=== PATIENT | female | born 1990 | race Caucasian/White ===

== ENCOUNTER → 2019-12-13 14:49 | Outpatient (CLI) | payer OTHER, SELFPAY ==
[2019-12-13 16:10] LABS: Hematocrit 40.1 % (36-46); Hemoglobin 13.6 g/dL (12.0-16.0); Mean Corpuscular HGB Conc 33.8 % (30-36); Mean Corpuscular Hemoglobin 30.6 PG (26-34); Mean Corpuscular Volume 90.4 fL (80-100); Platelet Count 151 X10^3/uL (150-400); Red Blood Cell Count 4.44 X10^6/uL (4.0-5.2); Red Cell Distribution Width 13.1 % (11.6-14.8); White Blood Cell Count 6.1 X10^3/uL (4.5-11.0)
[2019-12-13 16:21] LABS: Alanine Aminotransferase 17 IU/L (<35); Albumin 4.4 g/dL (3.5-5.0); Albumin Globulin Ratio 1.6 (1.0-2.8); Alkaline Phosphatase 55 U/L (38-126); Aspartate Aminotransferase 28 IU/L (14-36); BUN Creatinine Ratio 15.5 (6-22); Bilirubin Total 0.7 mg/dL (0.2-1.3); Blood Urea Nitrogen 13 mg/dL (7-17); Calcium 9.6 mg/dL (8.4-10.2); Carbon Dioxide 28 mmol/L (22-32); Chloride 100 mmol/L (98-107); Estimated Glomerular Filt Rate > 60.0 mL/min (>60); Globulin 2.8 g/dL (1.7-4.1); Glucose 88 mg/dL (70-100); HEMOLYSIS < 15 (0-50); Potassium 4.1 mmol/L (3.4-5.1); Sodium 137 mmol/L (137-145); Total Protein 7.2 g/dL (6.3-8.2)
[2019-12-13 17:39] LABS: Urine N gonorrhoeae NOT DETECTED
[2019-12-13 17:51] LABS: Urine Chlamydia NOT DETECTED
[2019-12-14 04:36] LABS: HSV 2 IGG AB 6.65 index (0.00-0.90); HSV1IGG < 0.91 index (0.00-0.90)
[2019-12-14 05:36] LABS: RPR Screen Non Reactive (Non Reactive)
[2019-12-16 16:33] LABS: Hepatitis B Surface Antigen NEGATIVE s/c (NEGATIVE)
[2019-12-16 16:50] LABS: HIV 1 & 2 Ab/Ag 4th Gen Combo NEGATIVE (NEGATIVE); Hep C Virus Ab w/Reflex Quant NEGATIVE s/c (NEGATIVE)
== END ==
PROVIDERS: Referring Provider Nurse Practitioner Family; Visit Provider Nurse Practitioner Family
DX: Z00.00 Encounter for general adult medical examination without abnormal findings (principal); Z20.2 Contact with and (suspected) exposure to infections with a predominantly sexual mode of transmission; R59.0 Localized enlarged lymph nodes
CPT/HCPCS: 36415; 80053; 85027; 86592; 86695; 86696; 86803; 87340; 87389; 87491; 87591

== ENCOUNTER → 2020-11-05 12:45 | Outpatient (CLI) | payer OTHER, SELFPAY ==
[2020-11-05] MEDS: COVID-19 VACC #1, MRNA(MOD) 100 MCG/0.5 ML VIAL IM (12:55)
== END ==
PROVIDERS: Family Provider Nurse Practitioner Family; PCP Nurse Practitioner Family; Visit Provider Internal Medicine
DX: Z23 Encounter for immunization (principal)
CPT/HCPCS: 0011A; 91301

== ENCOUNTER → 2020-12-03 14:37 | Outpatient (CLI) | payer OTHER, SELFPAY ==
[2020-12-03] MEDS: COVID-19 VACC #2, MRNA(MOD) 100 MCG/0.5 ML VIAL IM (14:43)
== END ==
PROVIDERS: Family Provider Nurse Practitioner Family; PCP Nurse Practitioner Family; Visit Provider Internal Medicine
DX: Z23 Encounter for immunization (principal)
CPT/HCPCS: 0012A; 91301

== ENCOUNTER → 2021-01-01 08:36 | Outpatient (CLI) | payer OTHER, SELFPAY ==
[2021-01-01 09:01] LABS: Hematocrit 42.1 % (36-46); Hemoglobin 13.9 g/dL (12.0-16.0); Mean Corpuscular HGB Conc 32.9 % (30-36); Mean Corpuscular Hemoglobin 29.5 PG (26-34); Mean Corpuscular Volume 89.6 fL (80-100); Platelet Count 144 X10^3/uL (150-400); Red Cell Distribution Width 13.4 % (11.6-14.8); White Blood Cell Count 6.2 X10^3/uL (4.5-11.0)
[2021-01-01 09:22] LABS: Alanine Aminotransferase 16 IU/L (<35); Albumin 4.6 g/dL (3.5-5.0); Albumin Globulin Ratio 1.7 (1.0-2.8); Alkaline Phosphatase 42 U/L (38-126); Aspartate Aminotransferase 28 IU/L (14-36); BUN Creatinine Ratio 20.2 (6-22); Bilirubin Total 0.5 mg/dL (0.2-1.3); Blood Urea Nitrogen 17 mg/dL (7-17); Calcium 9.7 mg/dL (8.4-10.2); Carbon Dioxide 29 mmol/L (22-32); Chloride 103 mmol/L (98-107); Cholesterol 148 mg/dL (140-199); Estimated Glomerular Filt Rate > 60.0 mL/min (>60); Globulin 2.7 g/dL (1.7-4.1); Glucose 84 mg/dL (70-100); HDL Cholesterol 67 mg/dL (40-60); HEMOLYSIS < 15 (0-50); LDL Cholesterol Calculated 73 mg/dL (<100); Potassium 4.7 mmol/L (3.4-5.1); Sodium 137 mmol/L (137-145); Total Protein 7.3 g/dL (6.3-8.2); Triglycerides 39 mg/dL (35-150)
[2021-01-01 09:54] LABS: TSH w/ Reflex to FT4 0.61 uIU/mL (0.47-4.68)
== END ==
PROVIDERS: Family Provider Nurse Practitioner Family; PCP Nurse Practitioner Family; Referring Provider Nurse Practitioner Family; Visit Provider Nurse Practitioner Family
DX: Z00.00 Encounter for general adult medical examination without abnormal findings (principal); I73.00 Raynaud's syndrome without gangrene; Z13.6 Encounter for screening for cardiovascular disorders
CPT/HCPCS: 36415; 80053; 80061; 84443; 85027

== ENCOUNTER 2021-01-14 09:00 | Outpatient (RCR) | payer OTHER, SELFPAY ==
--- NOTE | 2020-09-14 17:13 | PT.OIE ---
Current Diagnoses Other internal derangements of right knee (09/14/20) Past Medical History (Last Updated 12/27/19 @ 14:40 by JESSICA Onofre) Anorexia nervosa (~2005) Chicken pox (~1995) Encounter for routine gynecological examination HSV-2 (herpes simplex virus 2) infection Possible exposure to STD Right knee injury (2005) Past Surgical History (Last Updated 12/26/19 @ 20:04 by Yuko Steven) [place] teeth removed (~2014) Visit Care Team Role Provider Type JESSICA Onofre Attending Provider Advanced Rn Hyperbaric Family Provider Primary Care Provider Referring Provider Specialty: Family Practice Address: [address] [place] [address], [facility] Email: [email or web address] Physical Therapy Initial Evaluation PT-OP-A Visit Information Start: 09/03/20 17:10 Freq: Status: Active Protocol: Document 09/14/20 12:48 LRN (Rec: 09/14/20 14:18 LRN [id number]) Out-Patient Physical Therapy Visit Information Visit Information Visit Type Initial Evaluation Visit Start Time 12:48 Visit Stop Time 13:38 Total Visit Minutes 50 Visit Number 1 Evaluation Information Evaluation Date 09/14/20 Precautions Precautions None. PT-OP-B Current Condition Start: 09/03/20 17:10 Freq: Status: Active Protocol: Document 09/14/20 12:48 LRN (Rec: 09/14/20 14:18 LRN [id number]) Current Condition History of Current Condition Onset Date 2006 History of Current Condition R knee is stiff and tight. Goal is to take preventive measures. Sr in high school slipped off kitchen counter and landed on knee, was swollen and bruised, but MD thought nothing was wrong. Since then had clicked and is noticeably. Clicks 70 % of time going up stairs. Sometimes bending/ straightening the knee is will click. If sitting on heels it becomes very stiff. After stretching and biking has stiffness. Prior Treatments and Tests X-ray in 2018 found more ms development in R knee vs L knee. Future Testing and Treatments Planned Follow up with referring physician ~10/30/20. Treatment Goals Patient/Caregiver Goals Pt goal is to learn preventive measures to keep knee from worsening. Return to normal function. Prior Functional Status Baseline Function- ADL's Independent Baseline Function- Mobility Independent Current Functional Impairments (Reported) Functional Limitations- ADL's R knee Clicks with going up stairs and occasionally descending. R knee clicks coming out of squat and feels stiffness and tightness in majority of medial R knee. Functional Limitations- Mobility/Gait Occasional click in R knee. 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 Personal Factors Other Personal Factors That May Effect Lives in [place] with dog. Therapy/Recovery PT-OP-C Subjective Start: 09/03/20 17:10 Freq: Status: Active Protocol: Document 09/14/20 12:48 LRN (Rec: 09/14/20 14:18 LRN [id number]) Patient Questionnaires Lower Extremity Functional Scale LEFS Score 0 LEFS Impairment 0% Impaired (Score 80) OP-PT Pain Assessment Pain Assessment Grid Paper Pain Assessment Grid Completed Yes Location R knee Pain Location Details R medial knee stiffness Intensity 0 Scale Used Numeric (0 - 10) Description Tightness Frequency Intermittent Pain Aggravating Factors Activity,Exercise Other Pain Alleviating Factors Yoga, stretching. PT-OP-G Mobility & Gait Start: 09/03/20 17:10 Freq: Status: Active Protocol: Document 09/14/20 12:48 LRN (Rec: 09/14/20 14:18 LRN [id number]) OP Gait Assessment Gait Gait Assistance Required: Independent Able to Maintain Weight Bearing Status Yes During Gait Assistive Devices Assistive Device None Gait Deviations General Gait Pattern Within Normal Limits Comments Gait Comments R hip/shoulder low. PT-OP-H Neuro Start: 09/03/20 17:10 Freq: Status: Active Protocol: Document 09/14/20 12:48 LRN (Rec: 09/14/20 14:18 LRN [id number]) Sensation Evaluation Gross Sensation Gross Sensation WNL Deep Tendon Reflex & Clonus Assessment Deep Tendon Reflex Bilateral Achilles Deep Tendon Reflex 3+ Normal But Brisk Bilateral Patellar Deep Tendon Reflex 3+ Normal But Brisk PT-OP-J Posture/Palpation/Skin Start: 09/03/20 17:10 Freq: Status: Active Protocol: Document 09/14/20 12:48 LRN (Rec: 09/14/20 14:18 LRN [id number]) Posture Evaluation Position Standing L-Spine Posture Increased Lordosis Pelvis Posture Anteriorly Tilted Weight Distribution Balanced Knee Posture (L) Genu Valgus,(R) Genu Valgus Ankle/Foot Posture (R) Plantarflexed,(R) Pronated ,(R) Forefoot Abducted Foot Arch (L) Medium Arch,(R) Medium Arch Palpation Assessment Location R knee Palpation Location Infrapatellar Palpation Findings Edema PT-OP-K Range of Motion Start: 09/03/20 17:10 Freq: Status: Active Protocol: Document 09/14/20 12:48 LRN (Rec: 09/14/20 14:18 LRN [id number]) Hip Goniometric Range of Motion Hip Right Passive Testing Position Supine Straight Leg Raise 110 Internal Rotation 30 External Rotation 70 Left Passive Straight Leg Raise 110 Internal Rotation 35 External Rotation 65 Knee Goniometric Range of Motion Knee Right Knee ROM WFL No Patient Position Supine Flexion Active (degrees) 142 Extension Passive (degrees) 3 Left Knee ROM WFL Yes Patient Position Supine Flexion Active (degrees) 145 Extension Passive (degrees) 2 PT-OP-L Special Tests Start: 09/03/20 17:10 Freq: Status: Active Protocol: Document 09/14/20 12:48 LRN (Rec: 09/14/20 14:18 LRN [id number]) Special Tests Knee Special Tests Varus- 25 Degrees Test Results - right Valgus- 25 Degrees Test Results - right Straight Leg Raise Test Results - right Posterior Draw Test Results - right Patellar Grind Test Test Results - right Bounce Home Test Results - right Apley's Compression Test Results - right Anterior Draw Test Results - right Kathe Test Comments 1x Click on initial attempt, but was not able to reproduce with several attempts. Archana's Test Results - right PT-OP-M Strength Start: 09/03/20 17:10 Freq: Status: Active Protocol: Document 09/14/20 12:48 LRN (Rec: 09/14/20 14:18 LRN [id number]) Hip Strength Hip Manual Muscle Testing Right Comments Generally 5/5 Weakness visible (valgus of knee) with squat. Left Comments Generally 5/5 Knee Strength Knee Manual Muscle Testing Right Flexion (S2) 5 Normal Extension (L3) 5 Normal Left Flexion (S2) 5 Normal Extension (L3) 5 Normal Ankle/Foot Strength Ankle and Foot Manual Muscle Testing Right Comments Generally 5/5 Left Comments Generally 5/5 PT-OP-Q Treatments Start: 09/03/20 17:10 Freq: Status: Active Protocol: Document 09/14/20 12:48 LRN (Rec: 09/14/20 14:18 LRN [id number]) Therapeutic Exercises Supine Exercises QS Supine Exercise Name Taught during instructions given Side right Reps/Minutes 1' Self-Care/Home Management Treatment Education Other Education Discussed results of evaluation, goals and plan of care. Discussed & educated pt in use of cryotherapy to reduce swelling in R knee. Activities Self-Care/Home Management Activities Instructed pt in QS for knee ext stretching and for edema management. Instructed pt in R knee flexion stretch in prone. PT-OP-T Assessment and Plan Start: 09/03/20 17:10 Freq: Status: Active Protocol: Document 09/14/20 12:48 LRN (Rec: 09/14/20 14:18 LRN [id number]) Physical Therapy Assessment Rehab Potential Rehabilitation Potential Good Evaluation Complexity Number of Personal Factors/Comorbidities 0 Number of Body Systems Impaired 1-2 Clinical Presentation at Evaluation Stable Impairments Impairments Activity Tolerance,ROM Other Impairments Postural weakness with valgus of knees with squat and gait. Goals Three Impairment R knee instability (clicking ) w/R WBing activities (R up stairs, R squat) Short Term Goal (STG) Pt will be educated in HEP of hip/knee/ankle strengthening to minimize R knee valgus. STG Duration 10/29/20 Mcc Goal (LTG) Decrease symptoms of clicking with stepping up RLE and with RLE squats. LTG Duration 11/13/20 Two Impairment Decreased R knee ROM (3-142 right, 2-135 left) Short Term Goal (STG) Pt educated in use of modailities and K-tape for edema management. STG Duration 10/09/20 Rack Puncher Goal (LTG) Pt will demonstrate normal R knee AROM. LTG Duration 11/13/20 One Impairment Lacks proper knowledge in self care HEP for R knee. Short Term Goal (STG) Pt will be educated in edema management. STG Duration 09/25/20 Mcc Goal (LTG) Pt will be independent in a self care HEP to minimize onset of swelling in the R knee. LTG Duration 11/13/20 Assessment Summary Assessment Pt is a 30 yo female with low level swelling in the R knee. Her click complaints in the R knee was reproduced once with Kathe Test, which might indicate menicus involvement. I was unable to reproduce the click again even after several attempts. She was negative with Apley's Compression Test (test for meniscus dysfunction) and all ligamentous tests. She shows mild decrease in R knee and hip (IR) ROM and functional weakness of the R hip. Her balance is good as tested with SLS in socks. The pt will benefit from skilled physical therapy for education on self care of the R knee and for a self care HEP of ROM and strengthening to improve functional mobility for squats and stair ambulatioin, and to decrease swelling in the R knee. If she starts to experience catching or locking of the knee I would highly recommended that further imaging to rule out meniscus involvement. Physical Therapy Plan Frequency and Duration Frequency of Treatment Occasional/variable Plan of Care Start Date 09/14/20 Plan of Care End Date 11/13/20 Therapeutic Interventions Therapeutic Interventions Home Exercise Program,Manual Therapy,Patient/Caregiver Education,Self-Care/Home Management,Taping,Therapeutic Activities,Therapeutic Exercises Modalities Cold Pack/Ice Massage,Electric Stimulation,Hot Packs, Ultrasound Next Visit Focus/Plan Next Note Type Treatment Note Next Visit Plan Cont 1x or every other week due to financial concerns of the patient. Check patellar tracking. US R medial knee around patella and joint line. Education in self care of ice/heat & home program of medial quad and hip ab strengthening, Stretching to R knee (prone for flex) and QS for extension & hip R IR/L hip ER stretching. Assess for scoliosis. T-Band side walking. OC & CKC. I/S pt in biking at low resistance and high RPMs. T-Band exercises. End ice. Try K-tape with pt learning self taping.
--- NOTE | 2020-09-14 17:14 | PT.OPPOC ---
Physical, Occupational & Speech Therapy At [facility] Current Diagnoses Other internal derangements of right knee (09/14/20) Visit Care Team Role Provider Type JESSICA Onofre Attending Provider Advanced Computer Processing Scheduler Family Provider Primary Care Provider Referring Provider Specialty: Family Practice Address: [address] [place] [address], [id number] Email: [email or web address] Plan Of Care PT-OP-T Assessment and Plan Start: 09/03/20 17:10 Freq: Status: Active Protocol: Document 09/14/20 12:48 LRN (Rec: 09/14/20 14:18 LRN [id number]) Physical Therapy Assessment Rehab Potential Rehabilitation Potential Good Evaluation Complexity Number of Personal Factors/Comorbidities 0 Number of Body Systems Impaired 1-2 Clinical Presentation at Evaluation Stable Impairments Impairments Activity Tolerance,ROM Other Impairments Postural weakness with valgus of knees with squat and gait. Goals Three Impairment R knee instability (clicking ) w/R WBing activities (R up stairs, R squat) Short Term Goal (STG) Pt will be educated in HEP of hip/knee/ankle strengthening to minimize R knee valgus. STG Duration 10/29/20 Pipe Smoking Machine Operator Goal (LTG) Decrease symptoms of clicking with stepping up RLE and with RLE squats. LTG Duration 11/13/20 Two Impairment Decreased R knee ROM (3-142 right, 2-135 left) Short Term Goal (STG) Pt educated in use of modailities and K-tape for edema management. STG Duration 10/09/20 Pipe Smoking Machine Operator Goal (LTG) Pt will demonstrate normal R knee AROM. LTG Duration 11/13/20 One Impairment Lacks proper knowledge in self care HEP for R knee. Short Term Goal (STG) Pt will be educated in edema management. STG Duration 09/25/20 Pipe Smoking Machine Operator Goal (LTG) Pt will be independent in a self care HEP to minimize onset of swelling in the R knee. LTG Duration 11/13/20 Assessment Summary Assessment Pt is a 30 yo female with low level swelling in the R knee. Her click complaints in the R knee was reproduced once with Kathe Test, which might indicate menicus involvement. I was unable to reproduce the click again even after several attempts. She was negative with Apley's Compression Test (test for meniscus dysfunction) and all ligamentous tests. She shows mild decrease in R knee and hip (IR) ROM and functional weakness of the R hip. Her balance is good as tested with SLS in socks. The pt will benefit from skilled physical therapy for education on self care of the R knee and for a self care HEP of ROM and strengthening to improve functional mobility for squats and stair ambulatioin, and to decrease swelling in the R knee. If she starts to experience catching or locking of the knee I would highly recommended that further imaging to rule out meniscus involvement. Physical Therapy Plan Frequency and Duration Frequency of Treatment Occasional/variable Plan of Care Start Date 09/14/20 Plan of Care End Date 11/13/20 Therapeutic Interventions Therapeutic Interventions Home Exercise Program,Manual Therapy,Patient/Caregiver Education,Self-Care/Home Management,Taping,Therapeutic Activities,Therapeutic Exercises Modalities Cold Pack/Ice Massage,Electric Stimulation,Hot Packs, Ultrasound Next Visit Focus/Plan Next Note Type Treatment Note Next Visit Plan Cont 1x or every other week due to financial concerns of the patient. Check patellar tracking. US R medial knee around patella and joint line. Education in self care of ice/heat & home program of medial quad and hip ab strengthening, Stretching to R knee (prone for flex) and QS for extension & hip R IR/L hip ER stretching. Assess for scoliosis. T-Band side walking. OC & CKC. I/S pt in biking at low resistance and high RPMs. T-Band exercises. End ice. Try K-tape with pt learning self taping. Plan of Care Dates Plan of Care Start Date 09/14/20 Plan of Care End Date 11/13/20 Electronically Signed by: Theresa Lazo, PT 09/14/20 0902 Please Sign and Return: I have reviewed this Plan of Care and certify that the skilled therapy services above are required to meet the patient?s needs. Physician Signature Date Printed Name and Credentials Clinical Instructor Signature Printed Name and Credentials
--- NOTE | 2020-09-21 15:57 | PT.OTN ---
Current Diagnoses Other internal derangements of right knee (09/21/20) Physical Therapy Treatment Note PT-OP-A Visit Information Start: 09/03/20 17:10 Freq: Status: Active Protocol: Document 09/21/20 14:26 LRN (Rec: 09/21/20 15:56 LRN [id number]) Out-Patient Physical Therapy Visit Information Visit Information Visit Type Treatment Note Visit Start Time 14:26 Visit Stop Time 15:16 Total Visit Minutes 50 Visit Number 2 Evaluation Information Evaluation Date 09/14/20 Precautions Precautions None. PT-OP-B Current Condition Start: 09/03/20 17:10 Freq: Status: Active Protocol: Document 09/14/20 12:48 LRN (Rec: 09/14/20 14:18 LRN [id number]) Current Condition History of Current Condition Onset Date 2006 History of Current Condition R knee is stiff and tight. Goal is to take preventive measures. Sr in high school slipped off kitchen counter and landed on knee, was swollen and bruised, but MD thought nothing was wrong. Since then had clicked and is noticeably. Clicks 70 % of time going up stairs. Sometimes bending/ straightening the knee is will click. If sitting on heels it becomes very stiff. After stretching and biking has stiffness. Prior Treatments and Tests X-ray in 2018 found more ms development in R knee vs L knee. Future Testing and Treatments Planned Follow up with referring physician ~10/30/20. Treatment Goals Patient/Caregiver Goals Pt goal is to learn preventive measures to keep knee from worsening. Return to normal function. Prior Functional Status Baseline Function- ADL's Independent Baseline Function- Mobility Independent Current Functional Impairments (Reported) Functional Limitations- ADL's R knee Clicks with going up stairs and occasionally descending. R knee clicks coming out of squat and feels stiffness and tightness in majority of medial R knee. Functional Limitations- Mobility/Gait Occasional click in R knee. 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 Personal Factors Other Personal Factors That May Effect Lives in [place] with dog. Therapy/Recovery PT-OP-C Subjective Start: 09/03/20 17:10 Freq: Status: Active Protocol: Document 09/21/20 14:26 LRN (Rec: 09/21/20 15:56 LRN [id number]) OP-PT Subjective Patient Comments Patient Comments From doing ex's felt tension and fatigue behind the R knee. States she ran this morning and her knee felt tight, but after stretching felt fine. PT-OP-G Mobility & Gait Start: 09/03/20 17:10 Freq: Status: Active Protocol: Document 09/14/20 12:48 LRN (Rec: 09/14/20 14:18 LRN [id number]) OP Gait Assessment Gait Gait Assistance Required: Independent Able to Maintain Weight Bearing Status Yes During Gait Assistive Devices Assistive Device None Gait Deviations General Gait Pattern Within Normal Limits Comments Gait Comments R hip/shoulder low. PT-OP-H Neuro Start: 09/03/20 17:10 Freq: Status: Active Protocol: Document 09/14/20 12:48 LRN (Rec: 09/14/20 14:18 LRN [id number]) Sensation Evaluation Gross Sensation Gross Sensation WNL Deep Tendon Reflex & Clonus Assessment Deep Tendon Reflex Bilateral Achilles Deep Tendon Reflex 3+ Normal But Brisk Bilateral Patellar Deep Tendon Reflex 3+ Normal But Brisk PT-OP-J Posture/Palpation/Skin Start: 09/03/20 17:10 Freq: Status: Active Protocol: Document 09/14/20 12:48 LRN (Rec: 09/14/20 14:18 LRN [id number]) Posture Evaluation Position Standing L-Spine Posture Increased Lordosis Pelvis Posture Anteriorly Tilted Weight Distribution Balanced Knee Posture (L) Genu Valgus,(R) Genu Valgus Ankle/Foot Posture (R) Plantarflexed,(R) Pronated ,(R) Forefoot Abducted Foot Arch (L) Medium Arch,(R) Medium Arch Palpation Assessment Location R knee Palpation Location Infrapatellar Palpation Findings Edema PT-OP-K Range of Motion Start: 09/03/20 17:10 Freq: Status: Active Protocol: Document 09/14/20 12:48 LRN (Rec: 09/14/20 14:18 LRN [id number]) Hip Goniometric Range of Motion Hip Right Passive Testing Position Supine Straight Leg Raise 110 Internal Rotation 30 External Rotation 70 Left Passive Straight Leg Raise 110 Internal Rotation 35 External Rotation 65 Knee Goniometric Range of Motion Knee Right Knee ROM WFL No Patient Position Supine Flexion Active (degrees) 142 Extension Passive (degrees) 3 Left Knee ROM WFL Yes Patient Position Supine Flexion Active (degrees) 145 Extension Passive (degrees) 2 PT-OP-L Special Tests Start: 09/03/20 17:10 Freq: Status: Active Protocol: Document 09/14/20 12:48 LRN (Rec: 09/14/20 14:18 LRN [id number]) Special Tests Knee Special Tests Varus- 25 Degrees Test Results - right Valgus- 25 Degrees Test Results - right Straight Leg Raise Test Results - right Posterior Draw Test Results - right Patellar Grind Test Test Results - right Bounce Home Test Results - right Apley's Compression Test Results - right Anterior Draw Test Results - right Kathe Test Comments 1x Click on initial attempt, but was not able to reproduce with several attempts. Archana's Test Results - right PT-OP-M Strength Start: 09/03/20 17:10 Freq: Status: Active Protocol: Document 09/14/20 12:48 LRN (Rec: 09/14/20 14:18 LRN [id number]) Hip Strength Hip Manual Muscle Testing Right Comments Generally 5/5 Weakness visible (valgus of knee) with squat. Left Comments Generally 5/5 Knee Strength Knee Manual Muscle Testing Right Flexion (S2) 5 Normal Extension (L3) 5 Normal Left Flexion (S2) 5 Normal Extension (L3) 5 Normal Ankle/Foot Strength Ankle and Foot Manual Muscle Testing Right Comments Generally 5/5 Left Comments Generally 5/5 PT-OP-Q Treatments Start: 09/03/20 17:10 Freq: Status: Active Protocol: Document 09/21/20 14:26 LRN (Rec: 09/21/20 15:56 LRN [id number]) Cardio Equipment Bicycle (Upright) Duration (Minutes) 10 Resistance 5 Seat Position 9 Other Pt able to maintain rpm>90 (~ 105) Therapeutic Exercises Prone Exercises R knee flex Prone Exercise Name Knee flex stretch Side right Reps/Minutes 2' Sidelying Exercises Hip AB Sidelying Exercise Name Hip AB Side right Reps/Minutes 10 x 3 Comments Extra time for proper positioning of LE's Sitting Exercises Knee ext Sitting Exercise Name Knee ext Equipment Used Lev 5 Knee flex Sitting Exercise Name Knee flex Equipment Used Lev 5 Standing Exercises Squats Standing Exercise Name Squats Reps/Minutes 3' Comments Adjustments to feet with squats Self-Care/Home Management Treatment Education Patient Education Home Exercise Program Other Education Answered questions regarding home ex program. Discussed and issued handout of Edema management and discussed time of icing. Education in strengthening with discussion of # of reps/ weights and discussed strengthening vs endurance training. Activities Self-Care/Home Management Activities I/S pt and issuance of Lev 5 T -Band for knee flex/ext strengthening. Discussed pt return to outdoor cycling as progressive increase in distance/time with low resistance (high RPMs) vs heavy resistance cylcling. Pt to try and progressively increase cycling time on level before progressing to hills. Pt to cycle with higher rpms with inclines. PT-OP-R Modalities Start: 09/03/20 17:10 Freq: Status: Active Protocol: Document 09/21/20 14:26 LRN (Rec: 09/21/20 15:56 LRN [id number]) Ultrasound Therapy Treatment Posterior R knee Treatment Duration (minutes) 3 Patient Position Prone Coupling Medium Ultrasound Gel Applicator Size (cm2) 10 Mode Setting Continuous Intensity Setting (w/cm2) 1.0 R infrapatellar & medial knee Treatment Duration (minutes) 5 Patient Position Supine Coupling Medium Ultrasound Gel Applicator Size (cm2) 10 Mode Setting Continuous Intensity Setting (w/cm2) 1.0 PT-OP-T Assessment and Plan Start: 09/03/20 17:10 Freq: Status: Active Protocol: Document 09/21/20 14:26 LRN (Rec: 09/21/20 15:56 LRN [id number]) Physical Therapy Assessment Goals Three Impairment R knee instability (clicking ) w/R WBing activities (R up stairs, R squat) Short Term Goal (STG) Pt will be educated in HEP of hip/knee/ankle strengthening to minimize R knee valgus. (09/21/20: Progressed with issuance of Lev 5 TBand for greater resistance than her current Bands) STG Duration 10/29/20 (09/21/20: Progressed ) Painter Helper Spray Goal (LTG) Decrease symptoms of clicking with stepping up RLE and with RLE squats. LTG Duration 11/13/20 Two Impairment Decreased R knee ROM (3-142 right, 2-135 left) Short Term Goal (STG) Pt educated in use of modalities and K-tape for edema management. (09/21/20: Pt educated with handout issued for use of cryotherapy for edema management) STG Duration 10/09/20 (09/21/20: Progressed) Painter Helper Spray Goal (LTG) Pt will demonstrate normal R knee AROM. LTG Duration 11/13/20 One Impairment Lacks proper knowledge in self care HEP for R knee. Short Term Goal (STG) Pt will be educated in edema management. (09/21/20: Educated pt in use of cryotherapy with handout issued). STG Duration 09/25/20 (09/21/20: MET GOAL) Senior Living Goal (LTG) Pt will be independent in a self care HEP to minimize onset of swelling in the R knee. LTG Duration 11/13/20 Progress Towards Goals Progress Comments Progressing self care program, see above. Assessment Summary Assessment 30 yo female with low level swelling in the R knee of unknown origin. Patellar tracking appeared normal. She was negative Kathe Test although she reports feeling like the knee was going to click but didn't during testing. After cycling and stretch pt was able to squat without hindrance (note: she holds her R forefoot foot in mild AB), but after several squat ex's and ultrasound she noted tension (swelling?) above the patella. R patellar mobility was increased medial /lateral. Gait: Pt demonstrates slight valgus of knees and holds her R forefoot in mild AB. She has mild decrease in ROM of R knee flex , hip (IR) and weakness of the R hip AB's allowing valgus of knees. Physical Therapy Plan Frequency and Duration Frequency of Treatment Occasional/variable Plan of Care Start Date 09/14/20 Plan of Care End Date 11/13/20 Next Visit Focus/Plan Next Note Type Treatment Note Next Visit Plan Cont 1x or every other week due to financial concerns of the patient. Assess for questions regarding edema management and home exercise ( knee flex stretch, hip AB, knee strengthening with TB). Pt to wear running shoes running and assessment on TM. Try US R medial knee around patella, along joint line if needed. Education in home program of knee strengthening, hip ab & ankle strengthening. After ex: stretch R knee flex (prone) & hip R IR/L hip ER stretching. Assess for scoliosis. T-Band side walking. OC & CKC. T-Band exercises. Try K-tape with pt learning self taping. End ice if not using ultrasound.
--- NOTE | 2020-09-28 16:30 | PT.OTN ---
Current Diagnoses Other internal derangements of right knee (09/28/20) Physical Therapy Treatment Note PT-OP-A Visit Information Start: 09/03/20 17:10 Freq: Status: Active Protocol: Document 09/28/20 15:11 LRN (Rec: 09/28/20 16:29 LRN [id number]) Out-Patient Physical Therapy Visit Information Visit Information Visit Type Treatment Note Visit Start Time 15:12 Visit Stop Time 16:02 Total Visit Minutes 50 Visit Number 3 Evaluation Information Evaluation Date 09/14/20 Precautions Precautions None. PT-OP-B Current Condition Start: 09/03/20 17:10 Freq: Status: Active Protocol: Document 09/14/20 12:48 LRN (Rec: 09/14/20 14:18 LRN [id number]) Current Condition History of Current Condition Onset Date 2006 History of Current Condition R knee is stiff and tight. Goal is to take preventive measures. Sr in high school slipped off kitchen counter and landed on knee, was swollen and bruised, but MD thought nothing was wrong. Since then had clicked and is noticeably. Clicks 70 % of time going up stairs. Sometimes bending/ straightening the knee is will click. If sitting on heels it becomes very stiff. After stretching and biking has stiffness. Prior Treatments and Tests X-ray in 2018 found more ms development in R knee vs L knee. Future Testing and Treatments Planned Follow up with referring physician ~10/30/20. Treatment Goals Patient/Caregiver Goals Pt goal is to learn preventive measures to keep knee from worsening. Return to normal function. Prior Functional Status Baseline Function- ADL's Independent Baseline Function- Mobility Independent Current Functional Impairments (Reported) Functional Limitations- ADL's R knee Clicks with going up stairs and occasionally descending. R knee clicks coming out of squat and feels stiffness and tightness in majority of medial R knee. Functional Limitations- Mobility/Gait Occasional click in R knee. 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 Personal Factors Other Personal Factors That May Effect Lives in [place] with dog. Therapy/Recovery PT-OP-C Subjective Start: 09/03/20 17:10 Freq: Status: Active Protocol: Document 09/28/20 15:11 LRN (Rec: 09/28/20 16:29 LRN [id number]) OP-PT Subjective Patient Comments Patient Comments Knee feels tight, no pain. It feels like it is in tension, like it needs to be cracked PT-OP-G Mobility & Gait Start: 09/03/20 17:10 Freq: Status: Active Protocol: Document 09/28/20 15:11 LRN (Rec: 09/28/20 16:29 LRN [id number]) OP Gait Assessment Comments Gait Comments Running on TM: Speed 4.6: Knees valgus and rub, L lower legs circumducts around on swing through phase. Legs IR on heel strike left> right. Veers left. Walk: L ASIS protracts anteriorly greater and L LE IR 's > R. R foot AB's slightly on swing through. PT-OP-H Neuro Start: 09/03/20 17:10 Freq: Status: Active Protocol: Document 09/14/20 12:48 LRN (Rec: 09/14/20 14:18 LRN [id number]) Sensation Evaluation Gross Sensation Gross Sensation WNL Deep Tendon Reflex & Clonus Assessment Deep Tendon Reflex Bilateral Achilles Deep Tendon Reflex 3+ Normal But Brisk Bilateral Patellar Deep Tendon Reflex 3+ Normal But Brisk PT-OP-J Posture/Palpation/Skin Start: 09/03/20 17:10 Freq: Status: Active Protocol: Document 09/14/20 12:48 LRN (Rec: 09/14/20 14:18 LRN [id number]) Posture Evaluation Position Standing L-Spine Posture Increased Lordosis Pelvis Posture Anteriorly Tilted Weight Distribution Balanced Knee Posture (L) Genu Valgus,(R) Genu Valgus Ankle/Foot Posture (R) Plantarflexed,(R) Pronated ,(R) Forefoot Abducted Foot Arch (L) Medium Arch,(R) Medium Arch Palpation Assessment Location R knee Palpation Location Infrapatellar Palpation Findings Edema PT-OP-K Range of Motion Start: 09/03/20 17:10 Freq: Status: Active Protocol: Document 09/14/20 12:48 LRN (Rec: 09/14/20 14:18 LRN [id number]) Hip Goniometric Range of Motion Hip Right Passive Testing Position Supine Straight Leg Raise 110 Internal Rotation 30 External Rotation 70 Left Passive Straight Leg Raise 110 Internal Rotation 35 External Rotation 65 Knee Goniometric Range of Motion Knee Right Knee ROM WFL No Patient Position Supine Flexion Active (degrees) 142 Extension Passive (degrees) 3 Left Knee ROM WFL Yes Patient Position Supine Flexion Active (degrees) 145 Extension Passive (degrees) 2 PT-OP-L Special Tests Start: 09/03/20 17:10 Freq: Status: Active Protocol: Document 09/14/20 12:48 LRN (Rec: 09/14/20 14:18 LRN [id number]) Special Tests Knee Special Tests Varus- 25 Degrees Test Results - right Valgus- 25 Degrees Test Results - right Straight Leg Raise Test Results - right Posterior Draw Test Results - right Patellar Grind Test Test Results - right Bounce Home Test Results - right Apley's Compression Test Results - right Anterior Draw Test Results - right Kathe Test Comments 1x Click on initial attempt, but was not able to reproduce with several attempts. Archana's Test Results - right PT-OP-M Strength Start: 09/03/20 17:10 Freq: Status: Active Protocol: Document 09/14/20 12:48 LRN (Rec: 09/14/20 14:18 LRN [id number]) Hip Strength Hip Manual Muscle Testing Right Comments Generally 5/5 Weakness visible (valgus of knee) with squat. Left Comments Generally 5/5 Knee Strength Knee Manual Muscle Testing Right Flexion (S2) 5 Normal Extension (L3) 5 Normal Left Flexion (S2) 5 Normal Extension (L3) 5 Normal Ankle/Foot Strength Ankle and Foot Manual Muscle Testing Right Comments Generally 5/5 Left Comments Generally 5/5 PT-OP-Q Treatments Start: 09/03/20 17:10 Freq: Status: Active Protocol: Document 09/28/20 15:11 LRN (Rec: 09/28/20 16:29 LRN [id number]) Cardio Equipment Treadmill Duration (Minutes) 6 Speed 1.5 to 4.2 Incline 0 Other Gait assessment/training Therapeutic Exercises Sidelying Exercises Clamshell Sidelying Exercise Name Clamshell Side bilateral Reps/Minutes 6' Hip AB Sidelying Exercise Name Hip AB Side right Reps/Minutes 10 x 3 Comments Extra time for proper positioning of LE's Standing Exercises Squat walks Standing Exercise Name Squat walk, breaking down into components Side bilateral Reps/Minutes 20' Self-Care/Home Management Treatment Education Patient Education Home Exercise Program Other Education Discussed at length pt's areas of focus of her exercise, areas of focus for her regular ex routines and precautions for continued edema management and twisting at the knee in the presence of painful clicks of the knee. Discussed Oakes Milk for general inflammation and recommended pt research for anti- inflammatory measures that she would be more comfortable trying (natural methods). Activities Self-Care/Home Management Activities Issued written I/S for HEP to focus on and recommendations for focus of ex to improve areas of weaknesses identified for her weight lifting and general ex routines. PT-OP-R Modalities Start: 09/03/20 17:10 Freq: Status: Active Protocol: Document 09/21/20 14:26 LRN (Rec: 09/21/20 15:56 LRN [id number]) Ultrasound Therapy Treatment Posterior R knee Treatment Duration (minutes) 3 Patient Position Prone Coupling Medium Ultrasound Gel Applicator Size (cm2) 10 Mode Setting Continuous Intensity Setting (w/cm2) 1.0 R infrapatellar & medial knee Treatment Duration (minutes) 5 Patient Position Supine Coupling Medium Ultrasound Gel Applicator Size (cm2) 10 Mode Setting Continuous Intensity Setting (w/cm2) 1.0 PT-OP-T Assessment and Plan Start: 09/03/20 17:10 Freq: Status: Active Protocol: Document 09/28/20 15:11 LRN (Rec: 09/28/20 16:29 LRN [id number]) Physical Therapy Assessment Goals Three Impairment R knee instability (clicking ) w/R WBing activities (R up stairs, R squat) Short Term Goal (STG) Pt will be educated in HEP of hip/knee/ankle strengthening to minimize R knee valgus. (09/28/20: Progressed with issuance HEP of hip AB, ER, toe ups due to gait assessment : Weak hip AB's with valgus of the knees (L>R), circumduction of the lower legs (poor toe off), IR of LE' s (weak hip ER's). and R core rot is weaker than L. ) STG Duration 10/29/20 (09/21/20: Progressed ) Balance And Hairspring Assembler Goal (LTG) Decrease symptoms of clicking with stepping up RLE and with RLE squats. LTG Duration 11/13/20 Two Impairment Decreased R knee ROM (3-142 right, 2-135 left) Short Term Goal (STG) Pt educated in use of modalities and K-tape for edema management. (09/21/20: Pt educated with handout issued for use of cryotherapy for edema management) STG Duration 10/09/20 (09/21/20: Progressed) Residential Goal (LTG) Pt will demonstrate normal R knee AROM. LTG Duration 11/13/20 One Impairment Lacks proper knowledge in self care HEP for R knee. Short Term Goal (STG) Pt will be educated in edema management. (09/21/20: Educated pt in use of cryotherapy with handout issued). STG Duration 09/25/20 (09/21/20: MET GOAL) Residential Goal (LTG) Pt will be independent in a self care HEP to minimize onset of swelling in the R knee. (09/28/20: Written HEP issued: recommendations for focus of ex to improve areas of weaknesses (hip AB & ER, toe flex, trunk R rot) identified for her weight lifting and general ex routines. LTG Duration 11/13/20 Progress Towards Goals Progress Comments Progressed HEP. Assessment Summary Assessment Gait/Run assessment: Weak hip AB's with valgus of the knees (L>R), circumduction of the lower legs (poor toe off), IR of LE's (weak hip ER's). and R core rot is weaker than L. Physical Therapy Plan Frequency and Duration Frequency of Treatment Occasional/variable Plan of Care Start Date 09/14/20 Plan of Care End Date 11/13/20 Next Visit Focus/Plan Next Note Type Treatment Note Next Visit Plan Cont 1x or every other week due to financial concerns of the patient. Review HEP issued & monitor for stability with core and knees. Home exercise (knee flex stretch, knee strengthening with TB). Re-assess TM run for improvement of areas of weakness. US R medial knee around patella, along joint line if needed. Education in home program of knee & ankle strengthening. After ex: stretch R knee flex (prone) & hip R IR/L hip ER stretching. Assess for scoliosis. OC & CKC. T-Band exercises. Try K-tape with pt learning self taping. End ice if not using ultrasound.
--- NOTE | 2020-10-22 11:13 | PT.OTN ---
Current Diagnoses Other internal derangements of right knee (10/22/20) Physical Therapy Treatment Note PT-OP-A Visit Information Start: 09/03/20 17:10 Freq: Status: Active Protocol: Document 10/22/20 09:47 LRN (Rec: 10/22/20 11:05 LRN [id number]) Out-Patient Physical Therapy Visit Information Visit Information Visit Type Treatment Note Visit Start Time 09:47 Visit Stop Time 10:43 Total Visit Minutes 52 Visit Number 4 Evaluation Information Evaluation Date 09/14/20 Precautions Precautions None. PT-OP-B Current Condition Start: 09/03/20 17:10 Freq: Status: Active Protocol: Document 09/14/20 12:48 LRN (Rec: 09/14/20 14:18 LRN [id number]) Current Condition History of Current Condition Onset Date 2006 History of Current Condition R knee is stiff and tight. Goal is to take preventive measures. Sr in high school slipped off kitchen counter and landed on knee, was swollen and bruised, but MD thought nothing was wrong. Since then had clicked and is noticeably. Clicks 70 % of time going up stairs. Sometimes bending/ straightening the knee is will click. If sitting on heels it becomes very stiff. After stretching and biking has stiffness. Prior Treatments and Tests X-ray in 2018 found more ms development in R knee vs L knee. Future Testing and Treatments Planned Follow up with referring physician ~10/30/20. Treatment Goals Patient/Caregiver Goals Pt goal is to learn preventive measures to keep knee from worsening. Return to normal function. Prior Functional Status Baseline Function- ADL's Independent Baseline Function- Mobility Independent Current Functional Impairments (Reported) Functional Limitations- ADL's R knee Clicks with going up stairs and occasionally descending. R knee clicks coming out of squat and feels stiffness and tightness in majority of medial R knee. Functional Limitations- Mobility/Gait Occasional click in R knee. 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 Personal Factors Other Personal Factors That May Effect Lives in [place] with dog. Therapy/Recovery PT-OP-C Subjective Start: 09/03/20 17:10 Freq: Status: Active Protocol: Document 10/22/20 09:47 LRN (Rec: 10/22/20 11:05 LRN [id number]) OP-PT Subjective Patient Comments Patient Comments Nothing new. Hip soreness. Hasn't been noticing it as much. No pain, getting stronger with exercises. Icing helps. PT-OP-G Mobility & Gait Start: 09/03/20 17:10 Freq: Status: Active Protocol: Document 09/28/20 15:11 LRN (Rec: 09/28/20 16:29 LRN [id number]) OP Gait Assessment Comments Gait Comments Running on TM: Speed 4.6: Knees valgus and rub, L lower legs circumducts around on swing through phase. Legs IR on heel strike left> right. Veers left. Walk: L ASIS protracts anteriorly greater and L LE IR 's > R. R foot AB's slightly on swing through. PT-OP-H Neuro Start: 09/03/20 17:10 Freq: Status: Active Protocol: Document 09/14/20 12:48 LRN (Rec: 09/14/20 14:18 LRN [id number]) Sensation Evaluation Gross Sensation Gross Sensation WNL Deep Tendon Reflex & Clonus Assessment Deep Tendon Reflex Bilateral Achilles Deep Tendon Reflex 3+ Normal But Brisk Bilateral Patellar Deep Tendon Reflex 3+ Normal But Brisk PT-OP-J Posture/Palpation/Skin Start: 09/03/20 17:10 Freq: Status: Active Protocol: Document 09/14/20 12:48 LRN (Rec: 09/14/20 14:18 LRN [id number]) Posture Evaluation Position Standing L-Spine Posture Increased Lordosis Pelvis Posture Anteriorly Tilted Weight Distribution Balanced Knee Posture (L) Genu Valgus,(R) Genu Valgus Ankle/Foot Posture (R) Plantarflexed,(R) Pronated ,(R) Forefoot Abducted Foot Arch (L) Medium Arch,(R) Medium Arch Palpation Assessment Location R knee Palpation Location Infrapatellar Palpation Findings Edema PT-OP-K Range of Motion Start: 09/03/20 17:10 Freq: Status: Active Protocol: Document 09/14/20 12:48 LRN (Rec: 09/14/20 14:18 LRN [id number]) Hip Goniometric Range of Motion Hip Right Passive Testing Position Supine Straight Leg Raise 110 Internal Rotation 30 External Rotation 70 Left Passive Straight Leg Raise 110 Internal Rotation 35 External Rotation 65 Knee Goniometric Range of Motion Knee Right Knee ROM WFL No Patient Position Supine Flexion Active (degrees) 142 Extension Passive (degrees) 3 Left Knee ROM WFL Yes Patient Position Supine Flexion Active (degrees) 145 Extension Passive (degrees) 2 PT-OP-L Special Tests Start: 09/03/20 17:10 Freq: Status: Active Protocol: Document 09/14/20 12:48 LRN (Rec: 09/14/20 14:18 LRN [id number]) Special Tests Knee Special Tests Varus- 25 Degrees Test Results - right Valgus- 25 Degrees Test Results - right Straight Leg Raise Test Results - right Posterior Draw Test Results - right Patellar Grind Test Test Results - right Bounce Home Test Results - right Apley's Compression Test Results - right Anterior Draw Test Results - right Kathe Test Comments 1x Click on initial attempt, but was not able to reproduce with several attempts. Archana's Test Results - right PT-OP-M Strength Start: 09/03/20 17:10 Freq: Status: Active Protocol: Document 09/14/20 12:48 LRN (Rec: 09/14/20 14:18 LRN [id number]) Hip Strength Hip Manual Muscle Testing Right Comments Generally 5/5 Weakness visible (valgus of knee) with squat. Left Comments Generally 5/5 Knee Strength Knee Manual Muscle Testing Right Flexion (S2) 5 Normal Extension (L3) 5 Normal Left Flexion (S2) 5 Normal Extension (L3) 5 Normal Ankle/Foot Strength Ankle and Foot Manual Muscle Testing Right Comments Generally 5/5 Left Comments Generally 5/5 PT-OP-Q Treatments Start: 09/03/20 17:10 Freq: Status: Active Protocol: Document 10/22/20 09:47 LRN (Rec: 10/22/20 11:05 LRN [id number]) Cardio Equipment Elliptical Duration (Minutes) 10 Resistance 4 Other Training Treadmill Duration (Minutes) 5 Speed 1.5 to 5.6 Incline 0 Other Gait assessment/training Therapeutic Exercises Supine Exercises Piriformis Stretch Supine Exercise Name Piriformis stretch Side right Reps/Minutes 3' Comments Focus on R hip Lateral Hip stretch Supine Exercise Name Lateral Hip stretch Side bilateral Reps/Minutes 3' Comments R hip focus SKTC Supine Exercise Name SKTC Side bilateral Reps/Minutes 3' Sidelying Exercises Ankle EV Sidelying Exercise Name Ankle EV Side bilateral Reps/Minutes 15x each Comments Extra time to determine max tolerant wg Ankle IV Sidelying Exercise Name Ankle IV Side bilateral Equipment Used 2# Reps/Minutes 15x each Comments Extra time to determine max tolerant wgt Standing Exercises Dyn knee [place] fwd/bwd Standing Exercise Name Dyn knee [place] fwd/bwd Side bilateral Dyn knee lunge/squat w/trunk rot Standing Exercise Name Dyn knee lunge/squat w/trunk rot Side bilateral Reps/Minutes 4' Dyn knee side lunge/squat Standing Exercise Name Dyn knee side lunge/squat Side bilateral Reps/Minutes 6' Dyn hip AB squat Standing Exercise Name Hip AB squat, switching legs in squat Side bilateral Reps/Minutes 3' Side Step ups/Side hip hike Standing Exercise Name Side step ups & Side hip hikes Side bilateral Comments Extra time for to achieve pt awareness of proper ms to use with exercise. Ankle IV Standing Exercise Name Ankle IV/knee straight Side bilateral Equipment Used Lev 2 TB Reps/Minutes 15x each Comments Band at toes Ankle roll outs Standing Exercise Name Ankle EV, Big toe on floor Side bilateral Equipment Used Lev 3 TB Reps/Minutes 2' Comments Extra time for training. Self-Care/Home Management Treatment Education Patient Education Home Exercise Program Other Education Discussed stretching with various activities, addressing stretch before/after/during specific activities. Activities Self-Care/Home Management Activities Issued short Lev 3 TBand Issued written I/S for HEP: Ankle strengthening w/TBand & ankle wgts, Hip strengthening in standing, sidelie, using step, standing hip circles, and squat activities including with trunk rotation. PT-OP-R Modalities Start: 09/03/20 17:10 Freq: Status: Active Protocol: Document 09/21/20 14:26 LRN (Rec: 09/21/20 15:56 LRN [id number]) Ultrasound Therapy Treatment Posterior R knee Treatment Duration (minutes) 3 Patient Position Prone Coupling Medium Ultrasound Gel Applicator Size (cm2) 10 Mode Setting Continuous Intensity Setting (w/cm2) 1.0 R infrapatellar & medial knee Treatment Duration (minutes) 5 Patient Position Supine Coupling Medium Ultrasound Gel Applicator Size (cm2) 10 Mode Setting Continuous Intensity Setting (w/cm2) 1.0 PT-OP-T Assessment and Plan Start: 09/03/20 17:10 Freq: Status: Active Protocol: Document 10/22/20 09:47 LRN (Rec: 10/22/20 11:05 LRN [id number]) Physical Therapy Assessment Goals Three Impairment R knee instability (clicking ) w/R WBing activities (R up stairs, R squat) Short Term Goal (STG) Pt will be educated in HEP of hip/knee/ankle strengthening to minimize R knee valgus. (09/28/20: Progressed with issuance HEP of hip AB, ER strengthening & ankle strengthening). STG Duration 10/29/20 (10/22/20: Progressed ) Copywriting Intern Goal (LTG) Decrease symptoms of clicking with stepping up RLE and with RLE squats. (10/22/20: Pt thinks the clicking might be less) LTG Duration 11/13/20 (10/22/20: Progressing) Two Impairment Decreased R knee ROM (3-142 right, 2-135 left) Short Term Goal (STG) Pt educated in use of modalities and K-tape for edema management. (09/21/20: Pt educated with handout issued for use of cryotherapy for edema management) STG Duration 10/09/20 (09/21/20: Progressed) Copywriting Intern Goal (LTG) Pt will demonstrate normal R knee AROM. LTG Duration 11/13/20 One Impairment Lacks proper knowledge in self care HEP for R knee. Short Term Goal (STG) Pt will be educated in edema management. (09/21/20: Educated pt in use of cryotherapy with handout issued). STG Duration 09/25/20 (09/21/20: MET GOAL) Care Home Goal (LTG) Pt will be independent in a self care HEP to minimize onset of swelling in the R knee. (09/28/20: HEP issued: for focus of ex to improve areas of weaknesses (hips and ankles ). LTG Duration 11/13/20 (10/22/20: Progressing) Progress Towards Goals Progress Comments Progressed HEP. Assessment Summary Assessment Pt gait/run same to start: Weak hip AB's with valgus of the knees (L>R), circumduction of the lower legs (poor toe off), IR of LE's (weak hip ER' s). and R core rot is weaker than L. Pt showed improved mechanics after 5' on Eliptical. Pt was able to perform correctly the new ankle/hip ex's and appeared to have a good understanding of specifics of movement of exercise. Physical Therapy Plan Frequency and Duration Frequency of Treatment Occasional/variable Plan of Care Start Date 09/14/20 Plan of Care End Date 11/13/20 Next Visit Focus/Plan Next Note Type Treatment Note Next Visit Plan Cont every other week due to financial concerns of the patient, possible DC next visit to HEP. Start with Eliptical. I/S pt in K-tape for edema management & check R knee ROM (Goal # 2). Review HEP issued & monitor for stability with core and knees. Re-assess TM run for improvement of areas of weakness after Eliptical. Education in home program of knee & core (R rot focus); OC, CKC & T-Band exercises. After ex: stretch R knee flex (prone) & hip R IR/L hip ER stretching. Assess for scoliosis. Try K-tape with pt learning self taping. End ice if not using US @ R medial knee around patella, along joint line.
--- NOTE | 2020-11-19 16:49 | PT.OTN ---
Current Diagnoses Other internal derangements of right knee (11/19/20) Physical Therapy Treatment Note PT-OP-A Visit Information Start: 09/03/20 17:10 Freq: Status: Active Protocol: Document 11/19/20 15:02 LRN (Rec: 11/19/20 16:47 LRN [id number]) Out-Patient Physical Therapy Visit Information Visit Information Visit Type Progress Note Visit Start Time 15:02 Visit Stop Time 16:09 Total Visit Minutes 67 Visit Number 5 Evaluation Information Evaluation Date 09/14/20 Precautions Precautions None. PT-OP-B Current Condition Start: 09/03/20 17:10 Freq: Status: Active Protocol: Document 09/14/20 12:48 LRN (Rec: 09/14/20 14:18 LRN [id number]) Current Condition History of Current Condition Onset Date 2006 History of Current Condition R knee is stiff and tight. Goal is to take preventive measures. Sr in high school slipped off kitchen counter and landed on knee, was swollen and bruised, but MD thought nothing was wrong. Since then had clicked and is noticeably. Clicks 70 % of time going up stairs. Sometimes bending/ straightening the knee is will click. If sitting on heels it becomes very stiff. After stretching and biking has stiffness. Prior Treatments and Tests X-ray in 2018 found more ms development in R knee vs L knee. Future Testing and Treatments Planned Follow up with referring physician ~10/30/20. Treatment Goals Patient/Caregiver Goals Pt goal is to learn preventive measures to keep knee from worsening. Return to normal function. Prior Functional Status Baseline Function- ADL's Independent Baseline Function- Mobility Independent Current Functional Impairments (Reported) Functional Limitations- ADL's R knee Clicks with going up stairs and occasionally descending. R knee clicks coming out of squat and feels stiffness and tightness in majority of medial R knee. Functional Limitations- Mobility/Gait Occasional click in R knee. 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 Personal Factors Other Personal Factors That May Effect Lives in [place] with dog. Therapy/Recovery PT-OP-C Subjective Start: 09/03/20 17:10 Freq: Status: Active Protocol: Document 11/19/20 15:02 LRN (Rec: 11/19/20 16:47 LRN [id number]) OP-PT Subjective Patient Comments Patient Comments States she has had some less stiffness in the R knee. PT-OP-G Mobility & Gait Start: 09/03/20 17:10 Freq: Status: Active Protocol: Document 09/28/20 15:11 LRN (Rec: 09/28/20 16:29 LRN [id number]) OP Gait Assessment Comments Gait Comments Running on TM: Speed 4.6: Knees valgus and rub, L lower legs circumducts around on swing through phase. Legs IR on heel strike left> right. Veers left. Walk: L ASIS protracts anteriorly greater and L LE IR 's > R. R foot AB's slightly on swing through. PT-OP-H Neuro Start: 09/03/20 17:10 Freq: Status: Active Protocol: Document 09/14/20 12:48 LRN (Rec: 09/14/20 14:18 LRN [id number]) Sensation Evaluation Gross Sensation Gross Sensation WNL Deep Tendon Reflex & Clonus Assessment Deep Tendon Reflex Bilateral Achilles Deep Tendon Reflex 3+ Normal But Brisk Bilateral Patellar Deep Tendon Reflex 3+ Normal But Brisk PT-OP-J Posture/Palpation/Skin Start: 09/03/20 17:10 Freq: Status: Active Protocol: Document 09/14/20 12:48 LRN (Rec: 09/14/20 14:18 LRN [id number]) Posture Evaluation Position Standing L-Spine Posture Increased Lordosis Pelvis Posture Anteriorly Tilted Weight Distribution Balanced Knee Posture (L) Genu Valgus,(R) Genu Valgus Ankle/Foot Posture (R) Plantarflexed,(R) Pronated ,(R) Forefoot Abducted Foot Arch (L) Medium Arch,(R) Medium Arch Palpation Assessment Location R knee Palpation Location Infrapatellar Palpation Findings Edema PT-OP-K Range of Motion Start: 09/03/20 17:10 Freq: Status: Active Protocol: Document 09/14/20 12:48 LRN (Rec: 09/14/20 14:18 LRN [id number]) Hip Goniometric Range of Motion Hip Right Passive Testing Position Supine Straight Leg Raise 110 Internal Rotation 30 External Rotation 70 Left Passive Straight Leg Raise 110 Internal Rotation 35 External Rotation 65 Knee Goniometric Range of Motion Knee Right Knee ROM WFL No Patient Position Supine Flexion Active (degrees) 142 Extension Passive (degrees) 3 Left Knee ROM WFL Yes Patient Position Supine Flexion Active (degrees) 145 Extension Passive (degrees) 2 PT-OP-L Special Tests Start: 09/03/20 17:10 Freq: Status: Active Protocol: Document 09/14/20 12:48 LRN (Rec: 09/14/20 14:18 LRN [id number]) Special Tests Knee Special Tests Varus- 25 Degrees Test Results - right Valgus- 25 Degrees Test Results - right Straight Leg Raise Test Results - right Posterior Draw Test Results - right Patellar Grind Test Test Results - right Bounce Home Test Results - right Apley's Compression Test Results - right Anterior Draw Test Results - right Kathe Test Comments 1x Click on initial attempt, but was not able to reproduce with several attempts. Archana's Test Results - right PT-OP-M Strength Start: 09/03/20 17:10 Freq: Status: Active Protocol: Document 09/14/20 12:48 LRN (Rec: 09/14/20 14:18 LRN [id number]) Hip Strength Hip Manual Muscle Testing Right Comments Generally 5/5 Weakness visible (valgus of knee) with squat. Left Comments Generally 5/5 Knee Strength Knee Manual Muscle Testing Right Flexion (S2) 5 Normal Extension (L3) 5 Normal Left Flexion (S2) 5 Normal Extension (L3) 5 Normal Ankle/Foot Strength Ankle and Foot Manual Muscle Testing Right Comments Generally 5/5 Left Comments Generally 5/5 PT-OP-Q Treatments Start: 09/03/20 17:10 Freq: Status: Active Protocol: Document 11/19/20 15:02 LRN (Rec: 11/19/20 16:47 LRN [id number]) Cardio Equipment Elliptical Duration (Minutes) 8 Resistance 6 Other Cuing for hip AB, added TB for cuing to keep knees from Adducting. . Treadmill Duration (Minutes) 9 Speed 1.5 to 4.2 Incline 0. T-Band around knees to promote hip AB Other Gait training & strengthening of hip AB continual adjusting hip AB resist Therapeutic Exercises Supine Exercises Iliopsoas stretch Supine Exercise Name Ilipsoas stretch Side left Reps/Minutes 5 Standing Exercises Iliopsoas stretch Standing Exercise Name Ilipsoas stretch demonstration Side left Reps/Minutes 3' Other Exercises Kneeling Iliopsoas stretch Other Exercise Name Iliopsoas stretch Side left Reps/Minutes 5 Manual Therapy Treatment Soft Tissue Mobilization L Ilipsoas Body Location L Iliopsoas Mobilization Type Myofascial Release,Trigger Point Release Intensity/Depth Deep Body Position Hooklying Self-Care/Home Management Treatment Education Patient Education Home Exercise Program,Posture Other Education Educated pt in proper posture in standing with training against wall and in supine on table. Educated pt in trunk and hip anatomy with use of physical model and showing connection between tight ms & spinal posturing. Discussed at length upper core posture, rib positioning, excursion with breathing and deep breathing. Answered questions of pt regarding stretching positions , upper body & lower body positioning. Reviewed precaution for running to prevent collapsing of knee and if edema/tightness persists in R knee with squatting on heels. Activities Self-Care/Home Management Activities I/S pt in Iliopsoas stretch & brief review of her HEP (ankle , hip AB & knee strengthening exers). Extra time taken for training of proper Iliopsoas stretch in supine, kneeling and verbal I /S for standing hip flexor stretch. PT-OP-R Modalities Start: 09/03/20 17:10 Freq: Status: Active Protocol: Document 09/21/20 14:26 LRN (Rec: 09/21/20 15:56 LRN [id number]) Ultrasound Therapy Treatment Posterior R knee Treatment Duration (minutes) 3 Patient Position Prone Coupling Medium Ultrasound Gel Applicator Size (cm2) 10 Mode Setting Continuous Intensity Setting (w/cm2) 1.0 R infrapatellar & medial knee Treatment Duration (minutes) 5 Patient Position Supine Coupling Medium Ultrasound Gel Applicator Size (cm2) 10 Mode Setting Continuous Intensity Setting (w/cm2) 1.0 PT-OP-T Assessment and Plan Start: 09/03/20 17:10 Freq: Status: Active Protocol: Document 11/19/20 15:02 LRN (Rec: 11/19/20 16:47 LRN [id number]) Physical Therapy Assessment Rehab Potential Rehabilitation Potential Good Evaluation Complexity Number of Personal Factors/Comorbidities 0 Number of Body Systems Impaired 1-2 Clinical Presentation at Evaluation Stable Impairments Impairments Activity Tolerance,ROM Other Impairments Postural weakness with valgus of knees with squat and gait. Goals Three Impairment R knee instability (clicking ) w/R WBing activities (R up stairs, R squat) Short Term Goal (STG) Pt will be educated in HEP of hip/knee/ankle strengthening to minimize R knee valgus. (11/19/20: Occasional clicking in R knee). STG Duration 10/29/20 (11/19/20: MET GOAL) Network Field Engineer Goal (LTG) Decrease symptoms of clicking with stepping up RLE and with RLE squats. (11/19/20: No clicking with squats, clicking with 10 or greater steps ) LTG Duration 12/19/20 (11/19/20: Improved) Two Impairment Decreased R knee ROM (3-142 right, 2-135 left) Short Term Goal (STG) Pt educated in use of modalities and K-tape for edema management. (09/21/20: Pt educated with handout issued for use of cryotherapy for edema management) STG Duration 12/02/20 (09/21/20: Progressed ) Care Home Goal (LTG) Pt will demonstrate normal R knee AROM. (11/19/20: Active knee flexion: 152 deg's left, 155 deg's right; Initial AROM was 145 deg's left, 142 deg's right) LTG Duration 11/13/20 (11/19/20: MET GOAL) One Impairment Lacks proper knowledge in self care HEP for R knee. Short Term Goal (STG) Pt will be educated in edema management. (09/21/20: Educated pt in use of cryotherapy with handout issued). STG Duration 09/25/20 (09/21/20: MET GOAL) Care Home Goal (LTG) Pt will be independent in a self care HEP to minimize onset of swelling in the R knee. (09/28/20: HEP issued: for focus of ex to improve areas of weaknesses (hips and ankles ). LTG Duration 12/19/20 (10/22/20: Progressing) Progress Towards Goals Progress Comments Progressed HEP. STG #1 MET. LTG 1: Improved. STG #1 Improved. LTG# 2 MET . STG #3: MET. LTG #3: Improved. Pt able to walk on TM and was able to run ~ a minute without knees collapsing. Pt R knee active flexion has improved and lacks only a few deg's for symmetry with the L knee. Assessment Summary Assessment R knee AROM is improved but slightly less than L knee. On TM run (after ex on eliptical , pt was able to run for ~ a minute prior to hips adducting . She was able to ambulate ~ a minute without knees collapsing inward, demonstrating improved hip AB strength. Pt would benefit from further review of her exercises and to respond to her many questions she has regarding exercise and her health. Further therapy is also needed for education on self management of her edema with use of K-tape. Physical Therapy Plan Frequency and Duration Frequency of Treatment Occasional/variable Plan of Care Start Date 11/19/20 Plan of Care End Date 12/19/20 Therapeutic Interventions Therapeutic Interventions Home Exercise Program,Manual Therapy,Patient/Caregiver Education,Self-Care/Home Management,Taping,Therapeutic Activities,Therapeutic Exercises Next Visit Focus/Plan Next Note Type Treatment Note Next Visit Plan Cont every other week due to financial concerns of the patient, DC next visit to HEP unless pt has further concerns . I/S pt in K-tape for edema management. Review ex's verbally issued (give handout if needed), monitor stability with core/posture and knees. HEP of knee & core (R rot focus) ex's; OC, CKC & T-Band exercises. End: Ice & stretch R knee flex (prone) & hip R IR/L hip ER stretching. Assess Iliopsoas tightness & for scoliosis. US @ R medial knee around patella, along joint line if needed.
--- NOTE | 2020-12-11 10:13 | PT.OTN ---
Current Diagnoses Other internal derangements of right knee (12/11/20) Physical Therapy Treatment Note PT-OP-A Visit Information Start: 09/03/20 17:10 Freq: Status: Active Protocol: Document 12/11/20 09:05 LRN (Rec: 12/11/20 09:48 LRN [id number]) Out-Patient Physical Therapy Visit Information Visit Information Visit Type Treatment Note Visit Start Time 09:05 Visit Stop Time 09:45 Total Visit Minutes 40 Visit Number 6 Evaluation Information Evaluation Date 09/14/20 Precautions Precautions None. PT-OP-B Current Condition Start: 09/03/20 17:10 Freq: Status: Active Protocol: Document 09/14/20 12:48 LRN (Rec: 09/14/20 14:18 LRN [id number]) Current Condition History of Current Condition Onset Date 2006 History of Current Condition R knee is stiff and tight. Goal is to take preventive measures. Sr in high school slipped off kitchen counter and landed on knee, was swollen and bruised, but MD thought nothing was wrong. Since then had clicked and is noticeably. Clicks 70 % of time going up stairs. Sometimes bending/ straightening the knee is will click. If sitting on heels it becomes very stiff. After stretching and biking has stiffness. Prior Treatments and Tests X-ray in 2018 found more ms development in R knee vs L knee. Future Testing and Treatments Planned Follow up with referring physician ~10/30/20. Treatment Goals Patient/Caregiver Goals Pt goal is to learn preventive measures to keep knee from worsening. Return to normal function. Prior Functional Status Baseline Function- ADL's Independent Baseline Function- Mobility Independent Current Functional Impairments (Reported) Functional Limitations- ADL's R knee Clicks with going up stairs and occasionally descending. R knee clicks coming out of squat and feels stiffness and tightness in majority of medial R knee. Functional Limitations- Mobility/Gait Occasional click in R knee. 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 Personal Factors Other Personal Factors That May Effect Lives in [place] with dog. Therapy/Recovery PT-OP-C Subjective Start: 09/03/20 17:10 Freq: Status: Active Protocol: Document 12/11/20 09:05 LRN (Rec: 12/11/20 09:48 LRN [id number]) OP-PT Subjective Patient Comments Patient Comments States she hasn't been able to do the ex's occasionally. R knee feels the same, tightness in the front and above the patella, not better. Hasn't done yoga. PT-OP-G Mobility & Gait Start: 09/03/20 17:10 Freq: Status: Active Protocol: Document 09/28/20 15:11 LRN (Rec: 09/28/20 16:29 LRN [id number]) OP Gait Assessment Comments Gait Comments Running on TM: Speed 4.6: Knees valgus and rub, L lower legs circumducts around on swing through phase. Legs IR on heel strike left> right. Veers left. Walk: L ASIS protracts anteriorly greater and L LE IR 's > R. R foot AB's slightly on swing through. PT-OP-H Neuro Start: 09/03/20 17:10 Freq: Status: Active Protocol: Document 09/14/20 12:48 LRN (Rec: 09/14/20 14:18 LRN [id number]) Sensation Evaluation Gross Sensation Gross Sensation WNL Deep Tendon Reflex & Clonus Assessment Deep Tendon Reflex Bilateral Achilles Deep Tendon Reflex 3+ Normal But Brisk Bilateral Patellar Deep Tendon Reflex 3+ Normal But Brisk PT-OP-J Posture/Palpation/Skin Start: 09/03/20 17:10 Freq: Status: Active Protocol: Document 09/14/20 12:48 LRN (Rec: 09/14/20 14:18 LRN [id number]) Posture Evaluation Position Standing L-Spine Posture Increased Lordosis Pelvis Posture Anteriorly Tilted Weight Distribution Balanced Knee Posture (L) Genu Valgus,(R) Genu Valgus Ankle/Foot Posture (R) Plantarflexed,(R) Pronated ,(R) Forefoot Abducted Foot Arch (L) Medium Arch,(R) Medium Arch Palpation Assessment Location R knee Palpation Location Infrapatellar Palpation Findings Edema PT-OP-K Range of Motion Start: 09/03/20 17:10 Freq: Status: Active Protocol: Document 09/14/20 12:48 LRN (Rec: 09/14/20 14:18 LRN [id number]) Hip Goniometric Range of Motion Hip Right Passive Testing Position Supine Straight Leg Raise 110 Internal Rotation 30 External Rotation 70 Left Passive Straight Leg Raise 110 Internal Rotation 35 External Rotation 65 Knee Goniometric Range of Motion Knee Right Knee ROM WFL No Patient Position Supine Flexion Active (degrees) 142 Extension Passive (degrees) 3 Left Knee ROM WFL Yes Patient Position Supine Flexion Active (degrees) 145 Extension Passive (degrees) 2 PT-OP-L Special Tests Start: 09/03/20 17:10 Freq: Status: Active Protocol: Document 09/14/20 12:48 LRN (Rec: 09/14/20 14:18 LRN [id number]) Special Tests Knee Special Tests Varus- 25 Degrees Test Results - right Valgus- 25 Degrees Test Results - right Straight Leg Raise Test Results - right Posterior Draw Test Results - right Patellar Grind Test Test Results - right Bounce Home Test Results - right Apley's Compression Test Results - right Anterior Draw Test Results - right Kathe Test Comments 1x Click on initial attempt, but was not able to reproduce with several attempts. Archana's Test Results - right PT-OP-M Strength Start: 09/03/20 17:10 Freq: Status: Active Protocol: Document 09/14/20 12:48 LRN (Rec: 09/14/20 14:18 LRN [id number]) Hip Strength Hip Manual Muscle Testing Right Comments Generally 5/5 Weakness visible (valgus of knee) with squat. Left Comments Generally 5/5 Knee Strength Knee Manual Muscle Testing Right Flexion (S2) 5 Normal Extension (L3) 5 Normal Left Flexion (S2) 5 Normal Extension (L3) 5 Normal Ankle/Foot Strength Ankle and Foot Manual Muscle Testing Right Comments Generally 5/5 Left Comments Generally 5/5 PT-OP-Q Treatments Start: 09/03/20 17:10 Freq: Status: Active Protocol: Document 12/11/20 09:05 LRN (Rec: 12/11/20 09:48 LRN [id number]) Cardio Equipment Elliptical Duration (Minutes) 10 Resistance 6 Other Extra time to add TB for cuing to keep knees from Adducting. Treadmill Duration (Minutes) 10 Speed 1.7 walk, 4.2 run Incline 0. T-Band around knees to promote hip AB Other Walk 3', 5'. Phys assist to start for training to use hip AB's with gait Therapeutic Exercises Supine Exercises Iliopsoas stretch Supine Exercise Name Ilipsoas stretch Side left Reps/Minutes 6' Comments Extra time to position for max stretch. Manual Therapy Treatment Soft Tissue Mobilization L Ilipsoas Body Location L Iliopsoas Mobilization Type Myofascial Release Intensity/Depth Deep Body Position Hooklying Comments Brief check for tightness Taping K-tape for Body Location R knee Treatment Focus Edema management Type of Tape Kinesio Tape Skin Inspection Good Comments Fan strip around anterior knee for swelling, with I/S to pt on how to tape self for edema with pt writing notes on extra K-tape piece. PT-OP-R Modalities Start: 09/03/20 17:10 Freq: Status: Active Protocol: Document 09/21/20 14:26 LRN (Rec: 09/21/20 15:56 LRN [id number]) Ultrasound Therapy Treatment Posterior R knee Treatment Duration (minutes) 3 Patient Position Prone Coupling Medium Ultrasound Gel Applicator Size (cm2) 10 Mode Setting Continuous Intensity Setting (w/cm2) 1.0 R infrapatellar & medial knee Treatment Duration (minutes) 5 Patient Position Supine Coupling Medium Ultrasound Gel Applicator Size (cm2) 10 Mode Setting Continuous Intensity Setting (w/cm2) 1.0 PT-OP-T Assessment and Plan Start: 09/03/20 17:10 Freq: Status: Active Protocol: Document 12/11/20 09:05 LRN (Rec: 12/11/20 09:48 LRN [id number]) Physical Therapy Assessment Rehab Potential Rehabilitation Potential Good Evaluation Complexity Number of Personal Factors/Comorbidities 0 Number of Body Systems Impaired 1-2 Clinical Presentation at Evaluation Stable Goals Three Impairment R knee instability (clicking ) w/R WBing activities (R up stairs, R squat) Short Term Goal (STG) Pt will be educated in HEP of hip/knee/ankle strengthening to minimize R knee valgus. (11/19/20: Occasional clicking in R knee). STG Duration 10/29/20 (11/19/20: MET GOAL) Medicaid Plan Compliance Director Goal (LTG) Decrease symptoms of clicking with stepping up RLE and with RLE squats. (12/11/20: No clicking with squats, clicking with 10 or greater steps ) LTG Duration 12/19/20 (12/11/20: Improved) Two Impairment Decreased R knee ROM (3-142 right, 2-135 left) Short Term Goal (STG) Pt educated in use of modalities and K-tape for edema management. (12/11/20: Pt educated with K- taping of R knee for edema management) STG Duration 12/02/20 (12/11/20: MET GOAL) Medicaid Plan Compliance Director Goal (LTG) Pt will demonstrate normal R knee AROM. (11/19/20: Active knee flexion: 152 deg's left, 155 deg's right; Initial AROM was 145 deg's left, 142 deg's right) LTG Duration 11/13/20 (11/19/20: MET GOAL) One Impairment Lacks proper knowledge in self care HEP for R knee. Short Term Goal (STG) Pt will be educated in edema management. (09/21/20: Educated pt in use of cryotherapy with handout issued). STG Duration 09/25/20 (09/21/20: MET GOAL) Medicaid Plan Compliance Director Goal (LTG) Pt will be independent in a self care HEP to minimize onset of swelling in the R knee. (12/11/20: HEP reviewed for focus of ex to improve areas of weaknesses (hips) and self are in edema management. LTG Duration 12/19/20 (12/11/20: Self care progressing) Assessment Summary Assessment Extra time on eliptical & TM for set up with TBand. On eliptical, R knee began to AD after ~3'. Pt able to run 1' prior to legs adducting, but knees not touching until ~3'. Pt needed walking with TB around knees to facilitiate hip AB's with pt showing improved awareness of activation. Iliopsoas tighter L than R, probably due to scoliosis. She also has hip AB tightness. Pt would like to continue with recheck in 2 months, giving her time to exercise, but recommended 1x/ month with pt agreeable to work on HEP and recheck in 1 month for the next 3 months. Physical Therapy Plan Frequency and Duration Frequency of Treatment Occasional/variable Plan of Care Start Date 12/11/20 Plan of Care End Date 03/11/21 Therapeutic Interventions Therapeutic Interventions Home Exercise Program,Manual Therapy,Patient/Caregiver Education,Self-Care/Home Management,Taping,Therapeutic Exercises Next Visit Focus/Plan Next Note Type Treatment Note Next Visit Plan Recheck in 4 wks (due to financial concerns of the patient). Review pt use of K- tape for edema management. Review ex's verbally issued ( supine Iliopsoas stretch) and give handout if needed, monitor stability with core/ posture/knees. HEP of knee & core (R rot focus) ex's; OC/ CKC & T-Band exercises. Review stretch R knee flex ( prone) & hip R IR/L hip ER stretching. Scoliosis ex's for core. US @ R medial knee around patella, along joint line or croytherapy to end if needed.
--- NOTE | 2021-01-14 17:24 | PT.OTN ---
Current Diagnoses Other internal derangements of right knee (01/14/21) Physical Therapy Treatment Note PT-OP-A Visit Information Start: 09/03/20 17:10 Freq: Status: Active Protocol: Document 01/14/21 09:05 LRN (Rec: 01/14/21 09:53 LRN [id number]) Out-Patient Physical Therapy Visit Information Visit Information Visit Type Treatment Note Visit Start Time 09:04 Visit Stop Time 09:49 Total Visit Minutes 45 Visit Number 7 Evaluation Information Evaluation Date 09/14/20 Precautions Precautions None. PT-OP-B Current Condition Start: 09/03/20 17:10 Freq: Status: Active Protocol: Document 09/14/20 12:48 LRN (Rec: 09/14/20 14:18 LRN [id number]) Current Condition History of Current Condition Onset Date 2006 History of Current Condition R knee is stiff and tight. Goal is to take preventive measures. Sr in high school slipped off kitchen counter and landed on knee, was swollen and bruised, but MD thought nothing was wrong. Since then had clicked and is noticeably. Clicks 70 % of time going up stairs. Sometimes bending/ straightening the knee is will click. If sitting on heels it becomes very stiff. After stretching and biking has stiffness. Prior Treatments and Tests X-ray in 2018 found more ms development in R knee vs L knee. Future Testing and Treatments Planned Follow up with referring physician ~10/30/20. Treatment Goals Patient/Caregiver Goals Pt goal is to learn preventive measures to keep knee from worsening. Return to normal function. Prior Functional Status Baseline Function- ADL's Independent Baseline Function- Mobility Independent Current Functional Impairments (Reported) Functional Limitations- ADL's R knee Clicks with going up stairs and occasionally descending. R knee clicks coming out of squat and feels stiffness and tightness in majority of medial R knee. Functional Limitations- Mobility/Gait Occasional click in R knee. 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 Personal Factors Other Personal Factors That May Effect Lives in [place] with dog. Therapy/Recovery PT-OP-C Subjective Start: 09/03/20 17:10 Freq: Status: Active Protocol: Document 01/14/21 09:05 LRN (Rec: 01/14/21 09:53 LRN [id number]) OP-PT Subjective Patient Comments Patient Comments Less clicking noted, but always after exercise. States she scuffed her R knee; therefore swelling today. PT-OP-G Mobility & Gait Start: 09/03/20 17:10 Freq: Status: Active Protocol: Document 09/28/20 15:11 LRN (Rec: 09/28/20 16:29 LRN [id number]) OP Gait Assessment Comments Gait Comments Running on TM: Speed 4.6: Knees valgus and rub, L lower legs circumducts around on swing through phase. Legs IR on heel strike left> right. Veers left. Walk: L ASIS protracts anteriorly greater and L LE IR 's > R. R foot AB's slightly on swing through. PT-OP-H Neuro Start: 09/03/20 17:10 Freq: Status: Active Protocol: Document 09/14/20 12:48 LRN (Rec: 09/14/20 14:18 LRN [id number]) Sensation Evaluation Gross Sensation Gross Sensation WNL Deep Tendon Reflex & Clonus Assessment Deep Tendon Reflex Bilateral Achilles Deep Tendon Reflex 3+ Normal But Brisk Bilateral Patellar Deep Tendon Reflex 3+ Normal But Brisk PT-OP-J Posture/Palpation/Skin Start: 09/03/20 17:10 Freq: Status: Active Protocol: Document 09/14/20 12:48 LRN (Rec: 09/14/20 14:18 LRN [id number]) Posture Evaluation Position Standing L-Spine Posture Increased Lordosis Pelvis Posture Anteriorly Tilted Weight Distribution Balanced Knee Posture (L) Genu Valgus,(R) Genu Valgus Ankle/Foot Posture (R) Plantarflexed,(R) Pronated ,(R) Forefoot Abducted Foot Arch (L) Medium Arch,(R) Medium Arch Palpation Assessment Location R knee Palpation Location Infrapatellar Palpation Findings Edema PT-OP-K Range of Motion Start: 09/03/20 17:10 Freq: Status: Active Protocol: Document 01/14/21 09:05 LRN (Rec: 01/14/21 09:53 LRN [id number]) Knee Goniometric Range of Motion Knee Right Knee ROM WFL Yes Patient Position Supine Flexion Active (degrees) 145 Flexion Passive (degrees) 155 Comments Active flex is start of ms tension. Left Knee ROM WFL Yes Patient Position Supine Flexion Active (degrees) 147 Flexion Passive (degrees) 155 Comments Active flex is start of ms tension. PT-OP-L Special Tests Start: 09/03/20 17:10 Freq: Status: Active Protocol: Document 09/14/20 12:48 LRN (Rec: 09/14/20 14:18 LRN [id number]) Special Tests Knee Special Tests Varus- 25 Degrees Test Results - right Valgus- 25 Degrees Test Results - right Straight Leg Raise Test Results - right Posterior Draw Test Results - right Patellar Grind Test Test Results - right Bounce Home Test Results - right Apley's Compression Test Results - right Anterior Draw Test Results - right Kathe Test Comments 1x Click on initial attempt, but was not able to reproduce with several attempts. Archana's Test Results - right PT-OP-M Strength Start: 09/03/20 17:10 Freq: Status: Active Protocol: Document 09/14/20 12:48 LRN (Rec: 09/14/20 14:18 LRN [id number]) Hip Strength Hip Manual Muscle Testing Right Comments Generally 5/5 Weakness visible (valgus of knee) with squat. Left Comments Generally 5/5 Knee Strength Knee Manual Muscle Testing Right Flexion (S2) 5 Normal Extension (L3) 5 Normal Left Flexion (S2) 5 Normal Extension (L3) 5 Normal Ankle/Foot Strength Ankle and Foot Manual Muscle Testing Right Comments Generally 5/5 Left Comments Generally 5/5 PT-OP-Q Treatments Start: 09/03/20 17:10 Freq: Status: Active Protocol: Document 01/14/21 09:05 LRN (Rec: 01/14/21 09:53 LRN [id number]) Cardio Equipment Elliptical Duration (Minutes) 10 Resistance 6 Other Extra time to add TB for cuing to keep knees from Adducting. Therapeutic Exercises Supine Exercises Knee flex Supine Exercise Name Stretch to Knee flex Side right Comments flex is 145 deg's start of tension, 155 deg's max active flex Iliopsoas stretch Supine Exercise Name Ilipsoas stretch f/b active hip ext Side left Reps/Minutes 6' Comments Extra time to position for max stretch. Sitting Exercises Knee ext Sitting Exercise Name Knee ext stretch Side right Reps/Minutes 3' Comments Manual stretch applied Standing Exercises Stair ambulation Standing Exercise Name Up/Down Stairs of varing hgts and step lengths Reps/Minutes 8' Comments 4, 6, 8, & two 4 at a time ascending Manual Therapy Treatment Soft Tissue Mobilization R Quad Body Location R Quad Mobilization Type Myofascial Release,Sustained Pressure Intensity/Depth Moderate Body Position Supine Comments MFR in 2 different positions of hip ext. Taping K-tape for Body Location R knee Treatment Focus Edema management Type of Tape Kinesio Tape Skin Inspection Good Comments 2 Fan strips around anterior knee for swelling, with I/S to pt on how to tape self for edema with K-tape pieces and safe removal in 5 days with day inbetween before taping again. PT-OP-R Modalities Start: 09/03/20 17:10 Freq: Status: Active Protocol: Document 09/21/20 14:26 LRN (Rec: 09/21/20 15:56 LRN [id number]) Ultrasound Therapy Treatment Posterior R knee Treatment Duration (minutes) 3 Patient Position Prone Coupling Medium Ultrasound Gel Applicator Size (cm2) 10 Mode Setting Continuous Intensity Setting (w/cm2) 1.0 R infrapatellar & medial knee Treatment Duration (minutes) 5 Patient Position Supine Coupling Medium Ultrasound Gel Applicator Size (cm2) 10 Mode Setting Continuous Intensity Setting (w/cm2) 1.0 PT-OP-T Assessment and Plan Start: 09/03/20 17:10 Freq: Status: Active Protocol: Document 01/14/21 09:05 LRN (Rec: 01/14/21 09:53 LRN [id number]) Physical Therapy Assessment Goals Three Impairment R knee instability (clicking ) w/R WBing activities (R up stairs, R squat) Short Term Goal (STG) Pt will be educated in HEP of hip/knee/ankle strengthening to minimize R knee valgus. (11/19/20: Occasional clicking in R knee). STG Duration 10/29/20 (11/19/20: MET GOAL) Blasting Entry Specialist Goal (LTG) Decrease symptoms of clicking with stepping up RLE and with RLE squats. (01/14/21: No clicking with squats or stair ambulation after exercise) LTG Duration 12/19/20 (01/14/21: MET GOAL today, pt reported occasional clicking @ home) Two Impairment Decreased R knee ROM (3-142 right, 2-135 left) Short Term Goal (STG) Pt educated in use of modalities and K-tape for edema management. (12/11/20: Pt educated with K- taping of R knee for edema management) STG Duration 12/02/20 (12/11/20: MET GOAL) Blasting Entry Specialist Goal (LTG) Pt will demonstrate normal R knee AROM. (01/14/21: Active knee flexion: 147 deg's left, 145 deg's right; Initial AROM was 145 deg's left, 142 deg's right) LTG Duration 11/13/20 (11/19/20: MET GOAL) One Impairment Lacks proper knowledge in self care HEP for R knee. Short Term Goal (STG) Pt will be educated in edema management. (09/21/20: Educated pt in use of cryotherapy with handout issued). STG Duration 09/25/20 (09/21/20: MET GOAL) Blasting Entry Specialist Goal (LTG) Pt will be independent in a self care HEP to minimize onset of swelling in the R knee. LTG Duration 12/19/20 (01/14/21: MET GOAL) Assessment Summary Assessment Pt had no adverse reaction to K-tape and appears to have a good understanding of how to tape for edema and proper wear times as well as signs for removal of tape. Pt has K- tape on order. The pt has improved with reported lessening of pain and swelling at the R knee and she is experiencing much less clicking at the knee. She demonstrated improved positioning of the R knee during exercise with minimal to no medial collapsing of the knee with eliptical and stair climbing activities. The pt feels ready to be placed on a HEP for continued self care. The pt's mechanical positioning of her hips/knees places her at increased risk for weakening of her hip abductors; therefore posssible return of knee pain. The pt may need therapy in the future if weakening of hip abductors occur. Physical Therapy Plan Discharge Physical Therapy Discharge Reasons Goals Met Discharge Comments Pt may need therapy in the future due to the mechanical nature of her R knee. Thank you for your referral.
== END 2021-01-14 10:00 ==
LOC: PHYS 09:00
PROVIDERS: Family Provider Nurse Practitioner Family; PCP Nurse Practitioner Family; Referring Provider Nurse Practitioner Family; Visit Provider Nurse Practitioner Family
DX: M23.8X1 Other internal derangements of right knee (principal)
CPT/HCPCS: 97035; 97110; 97140; 97161; 97535

== ENCOUNTER 2023-10-27 20:04 | Emergency (ER) | payer BC, SELFPAY ==
[2023-10-27 20:06] VITALS: BP 116/65; PULSE 69; RESP 16; TEMP 37.2; O2SAT 100; BMI 21.2
--- NOTE | 2023-10-27 21:39 | ED.NECK ---
HPI - Neck Pain/Injury General Chief Complaint: Neck Pain/Injury Stated Complaint: Head injury Time Seen by Provider: 10/27/23 21:20 Mode of arrival: Ambulatory History of Present Illness HPI Narrative: 33-year-old female presents for general evaluation after minor head injury. Patient was lifting a heavy cabinet when it slipped somewhat, bumping her in the head and knocking her head to the left-hand side. She was able to go to the gym afterwards, but subsequently had a low-grade headache. She called her [employer] nursing advice line. When they asked if she had had any numbness or tingling in her extremities she stated that she felt like she had some tingling in her left upper extremity and she was advised to go to the ER for general evaluation. Patient denies any numbness, weakness, paresthesias in her extremities currently. Denies worst headache of life, vomiting, loss of consciousness. Primary pain right now is along the right-hand side of her neck Related Data Home Medications Medication Instructions Recorded Confirmed No Known Home Medications 12/11/19 01/12/21 Allergies Allergy/AdvReac Type Severity Reaction Status Date / Time No Known Drug Allergies Allergy Unverified 01/12/21 13:32 Review of Systems Review of Systems Narrative: See HPI Patient History Medical History Encounter for wellness examination in adult (01/12/21) Decreased platelet count (12/2020) Raynaud's disease Encounter for routine gynecological examination (12/27/19) HSV-2 (herpes simplex virus 2) infection Anorexia nervosa (~2005) Chicken pox (~1995) Right knee injury (2005) Surgical History [place] teeth removed (~2014) Family History Father Idiopathic hypereosinophilic syndrome Sister Celiac disease Grandfather Skin cancer Hypertension Dementia Atrial fibrillation Grandmother Hip fracture Acute gastritis Malnutrition Skin cancer Grandfather Cancer Atrial fibrillation Grandmother History of heart disease Social History Smoking Status: Never smoker second hand exposure: No alcohol intake: never substance use type: does not use Smoking Status: Never smoker Substance Use Type: does not use Exam Initial Vital Signs Initial Vital Signs: Vital Signs Temperature 98.9 F 10/27/23 20:06 Pulse Rate 69 10/27/23 20:06 Respiratory Rate 16 10/27/23 20:06 Blood Pressure 116/65 10/27/23 20:06 Pulse Oximetry 100 10/27/23 20:06 Oxygen Delivery Method Room Air 10/27/23 20:06 Const: Awake, alert, no acute distress, nontoxic appearing HEENT: No step-offs, no lacerations, no swelling, PERRLA, EOMI, TM normal bilaterally Neck: No midline tenderness, minimal right paraspinal tenderness to palpation Skin: Warm, Dry, intact, no rashes Neuro: AO x3, CN II-XII grossly intact, moves all extremities Course Vital Signs Vital signs: Vital Signs - 8 hr 10/27/23 20:06 Temperature 98.9 F Pulse Rate 69 Respiratory Rate 16 Blood Pressure 116/65 Pulse Oximetry 100 Oxygen Delivery Method Room Air MDM - Neck Pain/Injury MDM Narrative Medical decision making narrative: Well-appearing patient presenting for evaluation after minor head injury. Next cyst and [place] head CT rules negative. No indication for CT imaging at this time. Neurologically and vascularly intact. Patient advised to take Tylenol and Motrin as needed for pain and to apply ice as needed for swelling. Routine PCP follow up advised. Discharge Plan Departure Patient Disposition: Home Clinical Impression: Head injury Qualifiers: Encounter type: initial encounter Qualified Code(s): S09.90XA - Unspecified injury of head, initial encounter Instructions: DI for Closed Head Injury Activity Restrictions/Additional Instructions: Take Tylenol and Motrin as needed for pain. You may apply heat or ice to your neck for comfort. Follow up as needed with your primary care physician. Prescriptions: No Action No Known Home Medications Stand Alone Forms: Patient Portal/API
== END 2023-10-27 21:43 | disposition home or self-care (01) ==
PROVIDERS: Emergency Provider Emergency Medicine
DX: S09.90XA Unspecified injury of head, initial encounter (principal); W22.8XXA Striking against or struck by other objects, initial encounter
CPT/HCPCS: 99281